=== PATIENT | female | born 1990 | race Caucasian/White ===

== ENCOUNTER 2020-05-19 11:59 | Emergency (ER) | payer OTHER ==
[2020-05-19] MEDS ORDERED: Bactrim-DS 1 tab ORAL ONE (12:30)
[2020-05-19] MEDS ORDERED: Cephalexin 500mg cap ORAL ONE (12:30)
[2020-05-19] MEDS ORDERED: CEPHALEXIN500 MG ORAL (12:31)
[2020-05-19] MEDS ORDERED: BACTRIM DS TAB1 EAC1 ORAL (12:31)
== END 2020-05-19 13:00 | disposition home or self-care (01) ==
DX: L02.411 Cutaneous abscess of right axilla (principal); R59.1 Generalized enlarged lymph nodes